=== PATIENT | male | born 1995 | race Caucasian/White ===

== ENCOUNTER 2021-02-01 04:35 | Emergency (ER) | payer OTHER ==
[~2021-02-01 04:35] MED LIST: FLEXERIL 10 MG10 MG PO; IBUPROFEN600 MG PO
[2021-02-01] MEDS ORDERED: CYCLOBENZAPRINE5 MG PO (06:46)
[2021-02-01] MEDS ORDERED: IBUPROFEN600 MG PO (06:46)
== END 2021-02-01 06:58 | disposition home or self-care (01) ==
LOC: ER1 04:35
DX: S13.4XXA Sprain of ligaments of cervical spine, initial encounter (principal); F17.210 Nicotine dependence, cigarettes, uncomplicated; V49.40XA Driver injured in collision with unspecified motor vehicles in traffic accident, initial encounter; Y92.410 Unspecified street and highway as the place of occurrence of the external cause
CPT/HCPCS: 72125; 96372; 99283

== ENCOUNTER 2022-02-18 03:30 | Emergency (ER) | payer OTHER ==
[~2022-02-18 03:30] MED LIST changes: +CYCLOBENZAPRINE5 MG PO
[2022-02-18] MEDS ORDERED: IBUPROFEN600 MG PO (04:43)
== END 2022-02-18 05:42 | disposition home or self-care (01) ==
LOC: ER1 03:30
DX: S51.812A Laceration without foreign body of left forearm, initial encounter (principal); Z23 Encounter for immunization; W26.8XXA Contact with other sharp object(s), not elsewhere classified, initial encounter; Y92.009 Unspecified place in unspecified non-institutional (private) residence as the place of occurrence of the external cause
CPT/HCPCS: 12002; 73090; 90471; 90715; 99283